=== PATIENT | female | born 1990 | race Two or more races ===

== ENCOUNTER 2018-04-25 21:50 | Emergency (ER) | payer SELFPAY ==
[~2018-04-25] VITALS: Ht 167.6 cm; Wt 72.0 kg
[2018-04-26 00:03] VITALS: BP 111/66
[2018-04-26] MEDS ORDERED: FLUORESCEIN SODIUM 1MG/STRIP OP ONE (01:45)
[2018-04-26] MEDS ORDERED: TETRACAINE 0.5% OPHTH DROPS 4ML OP ONE (01:45)
== END 2018-04-26 01:57 | disposition home or self-care (01) ==
LOC: ER 21:50
DX: H57.12 Ocular pain, left eye (principal); Z98.890 Other specified postprocedural states
CPT/HCPCS: 99283